=== PATIENT | female | born 2000 | race American Indian/Alaskan Native ===

== ENCOUNTER 2018-05-27 13:49 | Emergency (ER) | payer MEDICAID, OTHER ==
--- NOTE | 2018-05-27 14:45 | Emergency Department Report ---
Blank Doc - Documentation Documentation: 17 y/o female presents to ED c/o of episodes of constipation and syncope with occasional BM. feel good at current.
[2018-05-27 15:12] LABS: Basophils # (Auto) 0.1 K/mm3 (0.0-0.1); Basophils % (Auto) 0.8 % (0.0-1.8); Eosinophils # (Auto) 0.1 K/mm3 (0.0-0.4); Eosinophils % (Auto) 0.8 % (0.0-4.3); Hemoglobin 12.8 gm/dl (10.1-14.3); Lymphocytes # (Auto) 1.7 K/mm3 (1.2-5.4); Lymphocytes % (Auto) 25.3 % (13.4-35.0); Mean Corpuscular HGB Conc 33 % (30-34); Mean Corpuscular Volume 91 fl (79-97); Monocytes # (Auto) 0.4 K/mm3 (0.0-0.8); Monocytes % (Auto) 6.4 % (0.0-7.3); Platelet Count 218 K/mm3 (140-440); Red Blood Count 4.27 M/mm3 (3.65-5.03); Red Cell Distribution Width 15.5 % (13.2-15.2)
--- NOTE | 2018-05-27 15:42 | XRay Report ---
PROCEDURE: XR CHEST ROUTINE 2V TECHNIQUE: 2 view chest HISTORY: Syncope COMPARISONS: None FINDINGS: Trachea midline. Heart size normal. Mediastinal contour normal No pneumothorax. No effusion. No airspace disease. No acute bony abnormality. IMPRESSION: Normal for age.. This document is electronically signed by Aron Velasquez MD., May 27 2018 03:40:08 PM ET
[2018-05-27 15:56] LABS: Alanine Aminotransferase 6 units/L (7-56); Albumin 4.6 g/dL (3.9-5); BUN/Creatinine Ratio 8; Blood Urea Nitrogen 5 mg/dL (7-17); Calcium 9.4 mg/dL (8.4-10.2); Hemolysis Index 10
--- NOTE | 2018-05-27 18:39 | Emergency Department Report ---
ED Syncope HPI - General Chief Complaint: Syncope Stated Complaint: HEART RACING/DIZZY/FAINTING Time Seen by Provider: 05/27/18 14:41 Source: patient Exam Limitations: no limitations - History of Present Illness Initial Comments: 17-year-old -[place] female presents for having fainting spells yesterday. Patient states after having a bowel movement yesterday. Patient s tates that when she bears down she becomes faint. She reports that when she to wash her hand she became dizzy and feels that she fainted for 2 or 3 seconds. Patient reports that she often will have dizziness or faintness like episodes when she has bowel movements. Patient denies any past medical history takes no medications on a daily basis and has no known drug allergies. Timing/Prior Episodes: remote history Precipitating Factors: Positive: diaphoresis, lightheadedness, nausea Context: sitting Loss of Consciousness: brief (seconds) Current Symptoms: back to normal - Related Data Allergies/Adverse Reactions: Allergies No Known Allergies Allergy (Unverified 01/26/15 11:35) Home Medications: Ambulatory Orders Cyclobenzaprine HCl [Flexeril 5 MG TAB] 5 mg PO Q8H #9 tablet 01/26/15 Ibuprofen [Motrin 600 MG tab] 600 mg PO Q8H PRN #30 tablet 01/26/15 ED Review of Systems ROS: Stated complaint: HEART RACING/DIZZY/FAINTING Other details as noted in HPI ED Past Medical Hx - Past Medical History Hx Asthma: Yes Additional medical history: ecezema - Surgical History Past Surgical History?: No - Social History Smoking Status: Never Smoker Substance Use Type: None - Medications Home Medications: Home Medications Medication Instructions Recorded Confirmed Last Taken Type Cyclobenzaprine HCl [Flexeril 5 MG 5 mg PO Q8H #9 tablet 01/26/15 Unknown Rx TAB] Ibuprofen [Motrin 600 MG tab] 600 mg PO Q8H PRN #30 tablet 01/26/15 Unknown Rx ED Physical Exam - General Limitations: No Limitations General appearance: alert, in no apparent distress - Head Head exam: Present: atraumatic, normocephalic - Eye Eye exam: Present: normal appearance - ENT ENT exam: Present: mucous membranes moist - Neck Neck exam: Present: normal inspection - Respiratory Respiratory exam: Present: normal lung sounds bilaterally. Absent: respiratory distress - Cardiovascular Cardiovascular Exam: Present: regular rate, normal rhythm. Absent: systolic murmur, diastolic murmur, rubs, gallop - GI/Abdominal GI/Abdominal exam: Present: soft, normal bowel sounds - Neurological Exam Neurological exam: Present: alert, oriented X3 - Expanded Neurological Exam Expanded Patient oriented to: Present: person, place, time Cranial nerves: EOM's Intact: Normal, Gag Reflex: Normal, Tongue Deviation: Normal, Nystagmus: Normal, Facial Sensation: Normal, Facial Palsy with Forehead Movement: Normal, Facial Palsy without Forehead Movement: Normal Cerebellar function: Finger to Nose: Normal, Heel to [place]: Normal, Romberg: Normal Upper motor neuron: Janes Neglect: Normal, Pronator Drift: Normal, Babinski Sign: Normal, Sensory Extinction: Normal Sensory exam: Upper Extremity Light Touch: Normal, Upper Extremity Pin Prick: Normal, Upper Extremity Temperature: Normal, UE 2 Point Discrimination: Normal, Lower Extremity Light Touch: Normal, Lower Extremity Pin Prick: Normal, Lower Extremity Temperature: Normal Motor strength exam: RUE: 5, LUE: 5, RLE: 5, LLE: 5 Best Eye Response ([place]): (4) open spontaneously Best Motor Response ([place]): (6) obeys commands Best Verbal Response ([place]): (5) oriented [place] Total: 15 - Psychiatric Psychiatric exam: Present: normal affect, normal mood - Skin Skin exam: Present: warm, dry, intact, normal color. Absent: rash ED Medical Decision Making - Lab Data Result diagrams: 05/27/18 15:00 05/27/18 15:00 - Medical Decision Making Patient has been evaluated by this provider in fast track. EKG shows no ST elevation. Discussed the patient she needs to follow up with the hydrometallurgical engineer for vagal reaction. Patient verbalized understanding Critical care attestation.: If time is entered above; I have spent that time in minutes in the direct care of this critically ill patient, excluding procedure time. ED Disposition Clinical Impression: Vagal reaction Disposition: DC-01 TO HOME OR SELFCARE Is pt being admited?: No Does the pt Need Aspirin: No Condition: Stable Instructions: Syncope (ED) Additional Instructions: Please follow up with the hydrometallurgical engineer to have further evaluation. Referrals: AMANDA SANDOVAL MD [Primary Care Provider] - 3-5 Days Your , Lease Examiner [Other] - 3-5 Days Forms: Work/School Release Form(ED)
[2018-05-27 18:55] VITALS: BP 101/56
== END 2018-05-27 18:55 | disposition home or self-care (01) ==
LOC: ED 13:49
DX: R55 Syncope and collapse (principal); J45.909 Unspecified asthma, uncomplicated
CPT/HCPCS: 36415; 71046; 80053; 85025; 93005; 93010